=== PATIENT | male | born 1975 | race Caucasian/White ===

== ENCOUNTER → 2019-02-01 | Outpatient (CLI) | payer OTHER ==
[~2019-02-01] MED LIST: LORA10ER PO; NAPR500 PO; Nix Lice Treatm59 ML TOP; PRED20 PO
== END | disposition home or self-care (01) ==
LOC: LAB SHORT 11:09 → PLD 11:09
DX: L82.0 Inflamed seborrheic keratosis (principal)
CPT/HCPCS: 88305